=== PATIENT | male | born 1950 | race Caucasian/White ===

== ENCOUNTER 2018-12-23 08:59 | Outpatient (CLI) | payer MEDICARE, MEDICAID ==
[~2018-12-23] VITALS: Ht 172.7 cm; Wt 82.6 kg
[2018-12-23 09:24] VITALS: BP 118/70
[2018-12-23] MEDS ORDERED: SUCR1TAB PO (10:07)
[2018-12-23] MEDS ORDERED: GABA-488 PO (10:07)
[2018-12-23] MEDS ORDERED: ASPI-586 PO (10:07)
[2018-12-23] MEDS ORDERED: CETI10TA17 PO (10:07)
[2018-12-23] MEDS ORDERED: OMG1KC PO (10:07)
[2018-12-23] MEDS ORDERED: LISI40TA PO (10:07)
[2018-12-23] MEDS ORDERED: HYDR-3820 PO (10:07)
[2018-12-23] MEDS ORDERED: MULT-1102 PO (10:07)
[2018-12-23] MEDS ORDERED: METO-370 PO (10:07)
[2018-12-23] MEDS ORDERED: ATOR80TA76 PO (10:07)
[2018-12-23] MEDS ORDERED: OMEP20CA12 PO (10:36)
[2018-12-23] MEDS ORDERED: METO100T12 PO (10:36)
[2018-12-23] MEDS ORDERED: LORA10TA7 PO (10:36)
[2018-12-23] MEDS ORDERED: CYCL10TA9 PO (10:37)
[2018-12-23] MEDS ORDERED: IBUP-1780 PO (10:37)
== END 2018-12-23 09:50 | disposition home or self-care (01) ==
LOC: PREOP 08:59 → EDUNIT# 09:00 → PREOP 09:50
PROVIDERS: ATTEND Orthopaedic Surgery Orthopaedic Surgery of the Spine
DX: Z01.818 Encounter for other preprocedural examination (principal)
CPT/HCPCS: 87081

== ENCOUNTER → 2019-04-22 | Outpatient (CLI) | payer MEDICARE, MEDICAID ==
[~2019-04-22] MED LIST: ASPI-586 PO; ATOR80TA76 PO; CETI10TA17 PO; CYCL10TA9 PO; GABA-488 PO; HYDR-3820 PO; IBUP-1780 PO; LISI40TA PO; LORA10TA7 PO; METO-370 PO; METO100T12 PO; MULT-1102 PO; OMEP20CA12 PO; OMG1KC PO; SUCR1TAB PO
--- NOTE | 2019-04-22 17:08 | Diagnostic Imaging Report ---
PROCEDURE: MRI lumbar spine. TECHNIQUE: Multiplanar, multisequence MRI of the lumbar spine was performed without contrast. INDICATION: Chronic low back pain. Prior lumbar spine surgery. COMPARISON: None. FINDINGS: Examination is limited by motion artifact. There are five lumbar-type vertebral bodies for the purposes of this report. Normal alignment. Vertebral body heights are preserved. There is a large Schmorl's node in the inferior endplate of L4. There are also Modic type I degenerative endplate changes at L4-L5. Bone marrow signal is otherwise unremarkable. There are postoperative findings of laminectomy at L4. No abnormal signal in the conus which terminates at L1. Normal morphology of the cauda equina. L1-L2: Normal. L2-L3: Normal. L3-L4: Small left paracentral disc extrusion with inferior migration results in mild lateral recess narrowing. No substantial spinal canal narrowing. Disc space height loss and facet arthropathy result in drkejipy-sk-baamguny bilateral neuroforaminal narrowing. L4-L5: The spinal canal is decompressed well. No substantial lateral recess narrowing. There is etptxgtj-tn-wbzfutjg bilateral neuroforaminal narrowing. L5-S1: No spinal canal or lateral recess narrowing. There is widt-zh-kidikszv bilateral neuroforaminal narrowing. IMPRESSION: 1. Moderate to advanced neuroforaminal narrowing a L3-L4 and L4-L5 bilaterally. 2. No high grade spinal canal narrowing. L4 laminectomy. 3. No acute osseous findings. Dictated by: Dictated on workstation # [id number]
== END ==
LOC: RAD 15:31
PROVIDERS: ATTEND Physician Assistant
DX: M48.061 Spinal stenosis, lumbar region without neurogenic claudication (principal); Z98.890 Other specified postprocedural states
CPT/HCPCS: 72148